=== PATIENT | male | born 1950 | race Caucasian/White ===

== ENCOUNTER 2020-12-27 10:56 | Emergency (ER) | payer MEDICARE, OTHER ==
[2020-12-27 13:41] LABS: HEMOGLOBIN 15.6 gm/dl (14.0-17.5); RED BLOOD COUNT 5.24 M/UL (4.20-5.50); WHITE BLOOD COUNT 7.4 K/UL (4.5-11.0)
[2020-12-27 14:00] LABS: BUN/CREATININE RATIO 19 (0-10)
== END 2020-12-27 18:35 ==
LOC: ER1 10:56
PROVIDERS: Emergency Medicine
DX: R10.32 Left lower quadrant pain (principal); R74.02 Elevation of levels of lactic acid dehydrogenase [LDH]; R91.1 Solitary pulmonary nodule; M54.9 Dorsalgia, unspecified; I10 Essential (primary) hypertension; I25.10 Atherosclerotic heart disease of native coronary artery without angina pectoris; J44.9 Chronic obstructive pulmonary disease, unspecified; Z87.442 Personal history of urinary calculi; Z86.79 Personal history of other diseases of the circulatory system; Z95.5 Presence of coronary angioplasty implant and graft; Z88.5 Allergy status to narcotic agent; Z88.8 Allergy status to other drugs, medicaments and biological substances; Z88.6 Allergy status to analgesic agent
CPT/HCPCS: 36415; 71046; 80053; 81001; 83605; 83690; 85025; 87040; 96365; 96375; 96376; 99284; J1170; J2405; J2543; Q9967